=== PATIENT | female | born 1970 | race Caucasian/White ===

== ENCOUNTER 2017-05-27 11:20 | Emergency (ER) | payer BC | END 2017-05-27 12:04 | disposition home or self-care (01) | LOC: MADERS 11:20 | DX: J01.90 Acute sinusitis, unspecified (principal); I10 Essential (primary) hypertension; E78.00 Pure hypercholesterolemia, unspecified; G47.00 Insomnia, unspecified; Z79.899 Other long term (current) drug therapy | CPT/HCPCS: 99283 ==